=== PATIENT | male | born 1965 | race African-American/Black ===

== ENCOUNTER 2016-08-18 12:09 | Emergency (ER) | payer OTHER ==
[~2016-08-18] VITALS: Ht 188 cm; Wt 100.0 kg
[~2016-08-18 12:09] MED LIST: MELO15TA2 PO; TRAM50 PO
[2016-08-18 12:12] VITALS: BP 126/85; PULSE 93; RESP 15; TEMP 98.2; O2SAT 96
[2016-08-18 12:21] VITALS: BP 136/91; PULSE 85; RESP 18; TEMP 99; O2SAT 97
[2016-08-18] MEDS ORDERED: ALBUAER3 INH (12:37)
[2016-08-18] MEDS ORDERED: ZITHTAB PO (12:37)
[2016-08-18] MEDS ORDERED: PRED50 PO (12:37)
--- NOTE | 2016-08-18 12:37 | PD ---
HPI Chief Complaint: ENT Complaint Time Seen by Provider: 12:33 Travel History International Travel<30 days: No Contact w/Intl Traveler<30days: No Traveled to known affect area: No History of Present Illness HPI 50-year-old male with no significant medical history presents to the emergency department for evaluation of productive cough of yellow sputum, chest congestion , subjective fever, and chills. Patient states that symptoms have been worsening over the last week and half. Over the last 3 days they have gotten significantly worse. He states that he gets into coughing fits and the sputum is thick. He denies history of COPD however he does have a history significant for tobacco cigarette smoking. He states the subjective fevers have begun over the last 3 days. He has had chills. Denies any chest pain. Denies any nausea , vomiting, diarrhea. He has no other symptoms to report. PFSH Past Medical History Medical History: Denies Significant Hx Diminished Hearing: No Social History Alcohol Use: No Tobacco Use: No (QUIT 2011) Substance Use: No Allergies-Medications (Allergen,Severity, Reaction): Coded Allergies: No Known Allergies (Verified , 10/19/15) Reported Meds & Prescriptions Reported Meds & Active Scripts Active Proair Hfa 8.5 GM Inh (Albuterol Sulfate) 90 Mcg/Act Aer 2 Puff INH Q4-6H PRN 108 mcg/actuation Prednisone 50 Mg Tab 50 Mg PO DAILY 5 Days Zithromax Z-Mauro (Azithromycin) 250 Mg Dspk 250 Mg PO DIRECTED 500 MG (2 tabs) day 1, then 1 tab days 2-5. Review of Systems Except as stated in HPI: all other systems reviewed are Neg Physical Exam Narrative GENERAL: Well-nourished male patient, in no acute distress SKIN: Warm and dry. HEAD: Atraumatic. Normocephalic. EYES: Pupils equal and round. No scleral icterus. No injection or drainage. ENT: No nasal bleeding or discharge. Mucous membranes pink and moist. NECK: Trachea midline. No JVD. CARDIOVASCULAR: Elevated rate and rhythm. No murmur appreciated. RESPIRATORY: No accessory muscle use. Coarse to auscultation. Breath sounds equal bilaterally. GASTROINTESTINAL: Abdomen soft, non-tender, nondistended. Hepatic and splenic margins not palpable. MUSCULOSKELETAL: No obvious deformities. No clubbing. No cyanosis. No edema. NEUROLOGICAL: Awake and alert. No obvious cranial nerve deficits. Motor grossly within normal limits. Normal speech. PSYCHIATRIC: Appropriate mood and affect; insight and judgment normal. Data Data Last Documented VS Vital Signs Date Time Temp Pulse Resp B/P Pulse Ox O2 Delivery O2 Flow Rate FiO2 08/18/16 12:21 99.0 85 18 136/91 97 MDM Medical Decision Making Medical Screen Exam Complete: Yes Emergency Medical Condition: Yes Medical Record Reviewed: Yes Differential Diagnosis Pneumonia versus influenza versus cold versus bronchitis Narrative Course 50-year-old male presents to emergency department for evaluation. Patient appears overall without distress however he does have low-grade temperature and is mildly tachycardic. Patient has coarse breath sounds throughout. Due to smoking history, duration of symptoms, and report of worsening, patient will be started on azithromycin Z-Mauro. He is discharged to follow-up with primary care provider. He agrees to return immediately with any acute worsening of symptoms. Diagnosis Primary Impression: Upper respiratory infection Qualified Code: J06.9 - Upper respiratory tract infection, unspecified type Referrals: Primary Care Physician Patient Instructions: General Instructions, Upper Respiratory Infection (ED) Additional Instructions: Follow up with your primary care provider; call tomorrow to schedule follow up Tylenol or ibuprofen as directed on the package as needed for fever and or pain Avoid acidic and abrasive food Warm salt water gargles to alleviate sore throat Over the counter cough/cold medication may help to alleviate symptoms. take as directed on package Return to ED immediately with any acute worsening of symptoms Med/Other Pt SpecificInfo: Prescription(s) given Scripts Albuterol 8.5 GM Inh (Proair Hfa 8.5 GM Inh)90 Mcg/Act Aer2 Puff INH Q4-6H PRN ( SHORTNESS OF BREATH) #1 INHALER Ref 0 108 mcg/actuation Prov:Flaca Figueroa 08/18/16 Prednisone 50 Mg Tab50 Mg PO DAILY 5 Days Ref 0 Prov:Flaca Figueroa 08/18/16 Azithromycin (Zithromax Z-Mauro)250 Mg [id number] Mg PO DIRECTED #1 DSPK Ref 0 500 MG (2 tabs) day 1, then 1 tab days 2-5. Prov:Flaca Figueroa 08/18/16 Disposition: 01 DISCHARGE HOME Condition: Stable Flaca Figueroa Aug 18, 2016 12:37
== END 2016-08-18 13:11 | disposition home or self-care (01) ==
LOC: NEPA 12:09
DX: J06.9 Acute upper respiratory infection, unspecified (principal)
CPT/HCPCS: 99283

== ENCOUNTER → 2016-09-13 | Day surgery (SDC) | payer OTHER ==
[~2016-09-13] MED LIST changes: +ACETAMINOPHEN 1000 MG/100 ML VIAL IV ONE; +ALBUAER3 INH; +BUPIVACAINE/EPINEPHRINE 0.25% PF 30 ML VIAL ONE; +KETOROLAC TROMETHAMINE 30 MG/ML (IVP) VIAL IV PUSH ONE; +LACTATED RINGER'S 1000 ML INJ 1,000 ML ONE; -MELO15TA2 PO; +MEPERIDINE HCL 25 MG/ML VIAL ONE; +MIDAZOLAM HCL 2 MG/2 ML VIAL ONE; +ONDANSETRON HCL 4 MG/2 ML VIAL IV PUSH ONE; +PRED50 PO; +PROPOFOL 200 MG/20 ML AMP IV ONE; -TRAM50 PO; +ZITHTAB PO; +ceFAZolin 2 GM PREMIX 50 ML ONE
--- NOTE | 2016-09-13 14:49 | TN ---
cc: NAHOMY AMARAL MD DATE OF SURGERY: 09/13/2016. PREOPERATIVE DIAGNOSIS: Umbilical hernia. POSTOPERATIVE DIAGNOSIS: Supraumbilical hernia. OPERATIVE PROCEDURE PERFORMED: Open repair of supraumbilical hernia with mesh. SURGEON: Nahomy Amaral MD. [address]IL[address] PATROL: Penelope. ESTIMATED BLOOD LOSS: 5 mL COMPLICATIONS: None. ANESTHESIA: General. OPERATIVE FINDINGS: The patient had three sub-centimeter supraumbilical hernias with incarcerated preperitoneal fat. The umbilicus was elevated from the underlying tissue and the supraumbilical hernia was either reduced or removed. DESCRIPTION OF THE PROCEDURE IN DETAIL: The patient was taken to the operating room and placed in a supine position. General endotracheal anesthesia was induced. The abdomen was prepped and draped in the usual sterile fashion. A surgical time-out was performed to verify correct patient, procedure and site. The patient received appropriate perioperative antibiotics. A transverse incision was made superior to the umbilicus after infiltration with local anesthetic. Dissection was carried out through the subcutaneous tissue with electrocautery. A small scissors were used to dissect circumferentially around the umbilicus and the local stalk was from the underlying fascia. The patient was noted have weakness superiorly, and on further exploration, there were actually three a subcentimeter supraumbilical hernias. These were all fully separate from each other but were full fascial defects. Subcutaneous tissue was cleared around the defects for a number of centimeters to expose only the fascia. Then vertically closing both the umbilical fascial defect and the multiple supraumbilical small fascial defects, simple interrupted zero Ethibond sutures were placed. Due to the fact that there were multiple defects, I opted to place an onlay polypropylene lightweight mesh. This was cut to size at 7 x 6 cm. It was oriented vertically and sutured at the corners and each border with #0 Ethibond suture. There was good coverage of the previous fascial repair. There was hemostasis in the operative field and the umbilical stalk was then tacked back down to the underlying fascia and mesh. The incision was closed with simple interrupted 3-0 Vicryl deep dermal sutures and skin with running subcuticular 4-0 Monocryl. Mastisol and Steri-Strips were applied as well as a sterile dressing and an abdominal binder. The patient tolerated procedure well and was extubated taken to the post-anesthesia care unit in stable condition. MD NAGA Magdaleno/WILLA /2:27 PM /2:44 PM
== END | disposition home or self-care (01) ==
LOC: ESDC 10:24
PROVIDERS: ATTEND Surgery
DX: K42.0 Umbilical hernia with obstruction, without gangrene (principal)
CPT/HCPCS: 00750; 49587; C1781; J0131; J0690; J1885; J2175; J2250; J2405; J3010; J7120